=== PATIENT | female | born 1965 | race Hispanic/Latino ===

== ENCOUNTER 2021-07-16 06:00 | Day surgery (SDC) | payer BC ==
[2021-07-15 11:16] LABS: BASOPHILS % (AUTO) 0.4 % (0.0-5.0); EOSINOPHILS % (AUTO) 1.7 % (0.0-8.0); HEMATOCRIT 45.7 % (36-48); MEAN CORPUSCULAR HEMOGLOBIN 33.1 pg (27.0-33.0); MEAN CORPUSCULAR HGB CONC 32.4 g/dL (32.0-36.0); MEAN CORPUSCULAR VOLUME 102.2 fL (79-99); MONOCYTES % (AUTO) 6.2 % (3.0-13.0); NEUTROPHILS % (AUTO) 68.5 % (40.0-77.0); PLATELET COUNT (AUTO) 299 K/uL (130-400); RED BLOOD CELL COUNT(AUTO) 4.47 MIL/uL (4.00-5.50); RED CELL DISTRIBUTION WIDTH 12.9 % (11.0-15.5); WHITE BLOOD COUNT (AUTO) 8.1 K/uL (4.8-10.8)
[2021-07-15 11:21] LABS: APPEARANCE,URINE Clear (CLEAR); BILIRUBIN,URINE Negative (NEGATIVE); COLOR,URINE Yellow (YELLOW); GLUCOSE, URINE (UA) Negative (NEGATIVE); KETONES,URINE Negative (NEGATIVE); LEUKOCYTE ESTERASE ,URINE Moderate (NEGATIVE); NITRATE,URINE Negative (NEGATIVE); OCCULT BLOOD,URINE Negative (NEGATIVE); PH,URINE 6.5 (5.0-8.0); PROTEIN,URINE Negative (NEGATIVE); UROBILINOGEN,URINE 0.2 mg/dL (0.2-1.0)
[2021-07-15 11:30] LABS: INR 0.98 (0.85-1.15); PROTHROMBIN TIME 10.7 SEC (9.6-11.6)
[2021-07-15 11:32] LABS: PARTIAL THROMBOPLASTIN TIME 25.9 SEC (26.3-35.5)
[2021-07-15 11:34] LABS: BACTERIA,URINE Rare /HPF (None Seen); RBC,URINE 0-1 /HPF (0-1); SQUAMOUS EPITHELIAL CELL,UR Few /HPF (0-2); WBC,URINE 0-1 /HPF (0-1)
[2021-07-15 11:43] LABS: CREATININE 0.8 mg/dL (0.5-1.5); POTASSIUM 3.8 mmol/L (3.5-5.1)
[2021-07-15 13:27] VITALS: BP 133/86
[~2021-07-16] VITALS: Ht 172.7 cm; Wt 74.3 kg
[2021-07-16] VITALS (18 sets, daily range): BP systolic 113–147; BP diastolic 72–100
[~2021-07-16 06:00] MED LIST: AMOX-427 PO; LEVO88CA4 PO; LOSA100T58 PO; MULT-1203 PO
[2021-07-16] MEDS ORDERED: LACTATED RINGERS 1000ML 1,000 ML IV ONE (06:49)
[2021-07-16] MEDS ORDERED: SUCCINYLCHOLINE 200MG/10ML SYR ONE (07:02)
[2021-07-16] MEDS ORDERED: SUCCINYLCHOLINE CHLORIDE 20 MG/ML 10 ML VIAL ONE (07:02)
[2021-07-16] MEDS ORDERED: LIDOCAINE PF 100MG/5ML (2%) SYRINGE 5ML ONE (07:02)
[2021-07-16] MEDS ORDERED: GLYCOPYRROLATE 1 MG/5 ML SYRINGE ONE (07:03)
[2021-07-16] MEDS ORDERED: ONDANSETRON 4MG INJ ONE ×2 (07:03→09:36)
[2021-07-16] MEDS ORDERED: DEXAMETHASONE SOD PHOSPHATE 10MG/ML 1ML VIAL ONE (07:03)
[2021-07-16] MEDS ORDERED: NEOSTIGMINE 5MG/5ML SYR IV ONE (07:03)
[2021-07-16] MEDS ORDERED: PROPOFOL 10 MG/ML 20ML VIAL IV ONE (07:03)
[2021-07-16] MEDS ORDERED: FENTANYL CITRATE PF 50 MCG/1 ML 2ML VIAL ONE ×2 (07:04→08:05)
[2021-07-16] MEDS ORDERED: MIDAZOLAM HCL 1 MG/ML 2ML VIAL ONE (07:04)
[2021-07-16] MEDS ORDERED: ROCURONIUM 10MG/1ML SYR 10 MG/ML ML ONE (07:04)
[2021-07-16] MEDS ORDERED: VALA500T42 PO (07:23)
[2021-07-16] MEDS: CEFAZOLIN SODIUM 1 GM VIAL ONE ×2 (07:38→07:46)
[2021-07-16] MEDS ORDERED: EPHEDRINE SULFATE 50 MG/ML AMPULE ONE (08:14)
[2021-07-16] MEDS ORDERED: MEPERIDINE-PF 25 MG/ML SYG ONE ×2 (09:36→09:49)
[2021-07-16] MEDS ORDERED: KETOROLAC 30MG VIAL (30MG/ML) ONE (09:36)
== END 2021-07-16 11:45 | disposition home or self-care (01) ==
LOC: DAH 06:00
PROVIDERS: ATTEND Orthopaedic Surgery Sports Medicine
DX: M70.21 Olecranon bursitis, right elbow (principal); T84.59XA Infection and inflammatory reaction due to other internal joint prosthesis, initial encounter; I10 Essential (primary) hypertension; E78.00 Pure hypercholesterolemia, unspecified; Z88.6 Allergy status to analgesic agent; Z79.890 Hormone replacement therapy; Z98.890 Other specified postprocedural states; Z90.49 Acquired absence of other specified parts of digestive tract; Z90.89 Acquired absence of other organs; Z79.01 Long term (current) use of anticoagulants; Z79.899 Other long term (current) drug therapy; Y83.8 Other surgical procedures as the cause of abnormal reaction of the patient, or of later complication, without mention of misadventure at the time of the procedure
CPT/HCPCS: 20680; 24105; 36415; 73070; 80048; 81001; 85025; 85610; 85730; 86850; 86900; 86901; 87070; 87076; 87077; 87088; 87186; 87205; 87635; A4213; A4215; A4216; A4221; A4222; A4223 ×2; A4565; A4606; A4649 ×3; A4663; A6223; C9803; J0330 ×2; J0690; J1100; J1885; J2001; J2175 ×2; J2250; J2405 ×2; J2704; J2710; J3010 ×2; J3490 ×2; J7120

== ENCOUNTER → 2022-07-15 | Outpatient (CLI) | payer BC ==
[~2022-07-15] MED LIST changes: +VALA500T42 PO
== END | disposition home or self-care (01) ==
LOC: RAH 15:00
PROVIDERS: ATTEND Internal Medicine Critical Care Medicine
DX: Z12.31 Encounter for screening mammogram for malignant neoplasm of breast (principal); Z15.01 Genetic susceptibility to malignant neoplasm of breast
CPT/HCPCS: 77063; 77067

== ENCOUNTER → 2023-03-18 | Outpatient (CLI) | payer BC ==
[~2023-03-18] MED LIST changes: +GADOTERATE MEGLUMINE 10 MMOL/20 ML VIAL IV ONE; -LOSA100T58 PO; +LOSA100T59 PO
== END | disposition home or self-care (01) ==
LOC: RAH 07:31
PROVIDERS: ATTEND Internal Medicine Critical Care Medicine
DX: Z12.39 Encounter for other screening for malignant neoplasm of breast (principal); Z15.01 Genetic susceptibility to malignant neoplasm of breast
CPT/HCPCS: 77049; A9575

== ENCOUNTER → 2023-07-19 | Outpatient (CLI) | payer BC ==
[~2023-07-19] MED LIST changes: -GADOTERATE MEGLUMINE 10 MMOL/20 ML VIAL IV ONE
== END | disposition home or self-care (01) ==
LOC: RAH 15:20
PROVIDERS: ATTEND Surgery
DX: Z12.31 Encounter for screening mammogram for malignant neoplasm of breast (principal)
CPT/HCPCS: 77063; 77067

== ENCOUNTER → 2024-01-28 | Outpatient (CLI) | payer BC ==
[2024-01-28 14:57] LABS: BILIRUBIN,TOTAL 0.4 mg/dL (0.2-1.0); CREATININE 0.9 mg/dL (0.5-1.0); POTASSIUM 4.2 mmol/L (3.5-5.1); TOTAL PROTEIN, SERUM 7.1 g/dL (6.0-8.3)
== END | disposition home or self-care (01) ==
LOC: LAB 12:58
PROVIDERS: ATTEND Surgery
DX: Z12.39 Encounter for other screening for malignant neoplasm of breast (principal); Z15.01 Genetic susceptibility to malignant neoplasm of breast; Z15.09 Genetic susceptibility to other malignant neoplasm
CPT/HCPCS: 36415; 80053

== ENCOUNTER → 2024-02-01 | Outpatient (CLI) | payer BC ==
[~2024-02-01] MED LIST changes: +GADOTERATE MEGLUMINE 10 MMOL/20 ML VIAL IV ONE
--- NOTE | 2024-02-01 17:10 | HMCIMG ---
MRI BREAST [facility] HISTORY: BRCA positive COMPARISON: 03/18/2023 TECHNIQUE: MRI of the bilateral breasts was performed utilizing multiple pulse sequences in axial, coronal and sagittal planes. Patient was given 20 cc of Clariscan through intravenous route. Dynamic imaging technique was used. FINDINGS: Fatty fibroglandular tissue is seen of both breasts. There is no mass lesion or abnormal enhancement. No evidence of nipple retraction or skin thickening is seen. IMPRESSION: 1. No interval changes seen. No mass lesion or abnormal enhancement is seen.
== END | disposition home or self-care (01) ==
LOC: RAH 14:45
PROVIDERS: ATTEND Surgery
DX: R92.323 Mammographic fibroglandular density, bilateral breasts (principal); Z15.01 Genetic susceptibility to malignant neoplasm of breast
CPT/HCPCS: C8908; A9575; 77049

== ENCOUNTER 2024-11-25 15:48 | Emergency (ER) | payer BC ==
[~2024-11-25] VITALS: Ht 172.7 cm; Wt 88.5 kg
[~2024-11-25 15:48] MED LIST changes: -GADOTERATE MEGLUMINE 10 MMOL/20 ML VIAL IV ONE; -LEVO88CA4 PO; +LEVO88CA5 PO
--- NOTE | 2024-11-25 16:51 | ERN ---
ED Note History of Present Illness Stated Complaint: FALL Chief Complaint: Mechanical Fall Time Seen by MD: 16:01 Dictation: PATIENT IS HERE WITH HER WITH COMPLAINTS OF LUMBOSACRAL AND LOWER THORACIC PAIN MIDLINE WITH SCIATICA BOTH LOWER EXTREMITY STATUS POST A FALL APPROXIMATELY 45 MINUTES AGO. SHE STATES SHE WAS WALKING IN THE LOCAL STORE WITH THE SHE TRIPPED ON HER FOOT AND LANDED ON HER BUTT. SHE SAID SHE FELT NAUSEATED AFTER IT HAPPENED WITH THE PAIN. SHE STATES SHE HAS HAD CHRONIC SCIATICA AFTER AN INJURY RUNNING 10 YEARS AGO AND WAS TOLD NOT TO RUN ANYMORE. SHE DENIES ANY CHANGE IN BOWEL OR BLADDER FUNCTION HAS NOT TAKEN ANYTHING PRIOR TO ARRIVAL FOR PAIN SINCE THE FALL. Allergies: Coded Allergies: codeine (Unverified Allergy, Unknown, 07/15/21) Home Meds Active Scripts Cyclobenzaprine HCl (Cyclobenzaprine HCl) 10 Mg Tablet, 1 TAB PO TID for muscle spasms for 10 Days, #30 TAB 0 Refills Prov:NOEMI LOONEY NP 11/25/24 Ibuprofen (Ibuprofen 800 mg Tab) 800 Mg Tab, 800 MG PO Q8H PRN for fever or pain, #30 TAB 0 Refills Prov:NOEMI LOONEY NP 11/25/24 Omeprazole (Omeprazole) 40 Mg Capsule.dr, 1 CAP PO DAILY for 30 Days, #30 CAP 0 Refills Prov:NOEMI LOONEY NP 11/25/24 Prednisone (Prednisone) 20 Mg Tablet, 1 TAB PO AD for 6 Days, #14 TAB 0 Refills TAKE 1 TAB BY MOUTH THREE TIMES PER DAY X3 DAYS, THEN TAKE 1 TAB BY MOUTH TWICE A DAY X2 DAYS, THEN TAKE 1 TAB BY MOUTH ONCE A DAY X1 DAY. Prov:NOEMI LOONEY NP 11/25/24 Reported Medications Valacyclovir HCl (Valacyclovir) 500 Mg Tablet, 500 MG PO DAILY, TAB 07/16/21 Amoxicillin/Potassium Clav (Augmentin Xr 1,000-62.5 Tab) 1 Each Tab.er.12h, 1 EACH PO BID, TAB 07/15/21 Losartan Potassium (Losartan Potassium) 100 Mg Tablet, 100 MG PO AM, TAB 07/15/21 Multivitamin (Multi Vitamin Daily) 1 Each Tablet, 1 EACH PO AM, TAB 07/15/21 Levothyroxine Sodium (Levothyroxine) 88 Mcg Capsule, 88 MCG PO AM, CAP 07/15/21 Past Medical History Past Medical History: Hypertension Surgical History: Cholecystectomy History: Not Applicable RN Note Reviewed/Agreed w/PFSH: Yes Review of System Dictation CONSTITUTIONAL: NEGATIVE EXCEPT FOR HPI HEAD/FACE: NEGATIVE EXCEPT FOR HPI EENT: NEGATIVE EXCEPT FOR HPI RESPIRATORY: NEGATIVE EXCEPT FOR HPI GASTROINTESTINAL/ABDOMINAL: NEGATIVE EXCEPT FOR HPI GENITOURINARY: NEGATIVE EXCEPT FOR HPI MUSCULOSKELETAL: NEGATIVE EXCEPT FOR HPI LOWER THORACIC/LUMBOSACRAL PAIN CHRONIC SCIATICA INTEGUMENTARY: NEGATIVE EXCEPT FOR HPI NEUROLOGICAL/PSYCH: NEGATIVE EXCEPT FOR HPI HEMATOLOGIC/LYMPHATIC: NEGATIVE EXCEPT FOR HPI ALL SYSTEMS NEGATIVE, EXCEPT NOTED ABOVE. 13 POINT REVIEW OF SYSTEMS ASSESSED AND ALL NEGATIVE EXCEPT FOR ABOVE. Initial Vital Sign VS Vital Signs Date Time Temp Pulse Resp B/P (MAP) Pulse Ox O2 Delivery O2 Flow Rate FiO2 11/25/24 15:51 97.9 77 16 104/80 97 Room Air 0 11/25/24 15:57 21 Physical Exam Dictation VITAL SIGNS REVIEWED GENERAL APPEARANCE: ALERT, ORIENTED X 3, SEVERE ACUTE DISTRESS, WELL DEVELOPED, NOURISHED. HEAD AND FACE: NON-TRAUMATIC. EYES: PERRL, PINK CONJUNCTIVAS, EYELID NO TRAUMA, ANTERIOR CHAMBER WITH ARCUS SENILIS. EARS: PINNAS INTACT AND NO SIGNS OF TRAUMA OR ERYTHEMA EAR CANALS CLEAR AND NO DISCHARGE TM NO ERYTHEMA NOSE: NO DISCHARGE, NO BLEEDING. OROPHARYNX: MOUTH NORMAL, TONGUE PINK, PHARYNX CLEAR,NO ERYTHEMA, TONSILS NO EXUDATES, NO ABSCESSES NOTED, MUCOUS MEMBRANE MOIST NECK: SUPPLE, NON-TENDER, NO THYROMEGALY, NO MASSES, NO JVD, NO BRUITS BREAST:DEFERRED CHEST:NO TENDERNESS, NO CREPITUS, NO PARADOXICAL MOVEMENT, NO RETRACTIONS LUNGS:CLEAR, WELL-VENTILATED, SYMMETRIC, NO RALES, NO WHEEZING, NO RHONCHI, NO STRIDOR, GOOD BREATH SOUNDS BILATERALLY HEART: REGULAR RATE, REGULAR RHYTHM, NO MURMUR, NO GALLOPS VASCULAR: NO PERIPHERAL EDEMA, ABDOMEN: SOFT, POSITIVE BOWEL SOUNDS, NONDISTENDED, NO GUARDING, NONTENDER, NO REBOUND, NO MASSES NO HEPATOMEGALY, NO SPLENOMEGALY, NO RICKS'S SIGN, NO HERNIAS. RECTAL: DEFERRED GENITAL: DEFERRED NEUROLOGICAL: NORMAL SPEECH, MOTOR FUNCTION INTACT, SENSORY FUNCTION INTACT MUSCULOSKELETAL: NECK NONTENDER, FULL RANGE OF MOTION, DIFFUSE AND MIDLINE DISTAL THORACIC/LUMBAR AND SACRAL TENDERNESS NO STEP-OFFS. POSITIVE STRAIGHT LEG RAISE BILATERALLY 10 BILATERAL EXTREMITIES: NONTENDER, FULL RANGE OF MOTION SKIN: COLOR PINK, DRY, NO TURGOR, NO RASH, NO LACERATIONS, NO ABRASIONS, NO CONTUSIONS. LYMPHATIC: DEFERRED Results (Laboratory/Radiology) Laboratory/Radiology 0/THORACIC/LUMBAR/SACRAL X-RAYS DEMONSTRATE DEGENERATIVE CHANGES WITH OSTEOPENIA NO FRACTURES. Labs Reviewed?: Yes ED Course ED Course Orders Procedure Category Date Status Time Lumbar Spine 2-3vws RAD 11/25/24 Resulted 16:46 Sacrum/Coccyx 2+Vws RAD 11/25/24 Resulted 16:46 Thoracic Spine 2vws RAD 11/25/24 Resulted 16:46 Cyclobenzaprine Hcl PHA 11/25/24 Complete (Cyclobenzaprine Hcl 17:00 Ketorolac 60mg/2ml PHA 11/25/24 Complete (Toradol 60mg/2ml) 17:00 Dexamethasone 4mg/Ml PHA 11/25/24 Complete 1ml Vial (Dexametha 17:00 Current Medications Medications (Trade) Dose Ordered Sig/Matt Route PRN Reason Start Time Stop Time Status Last Admin Dose Admin Cyclobenzaprine HCl (Cyclobenzaprine HCl) 10 mg ONCE ONCE PO 11/25/24 17:00 11/25/24 17:01 DC 11/25/24 17:42 Dexamethasone Sodium Phosphate (dexaMETHasone 4MG/ML 1ML VIAL) 8 mg ONCE ONCE IM 11/25/24 17:00 11/25/24 17:01 DC 11/25/24 17:40 Ketorolac Tromethamine (toRADol 60MG/ 2ML) 60 mg ONCE ONCE IM 11/25/24 17:00 11/25/24 17:01 DC 11/25/24 17:42 Vital Signs Date Time Temp Pulse Resp B/P (MAP) Pulse Ox O2 Delivery O2 Flow Rate FiO2 11/25/24 15:57 97.9 77 16 104/80 97 Room Air* 0 21 11/25/24 15:51 97.9 77 16 104/80 97 Room Air 0 1810/SPOKE WITH PATIENT REGARDING CLINICAL FINDINGS. SHE WILL BE DISCHARGED HOME WITH CYCLOBENZAPRINE/PREDNISONE/IBUPROFEN AND OMEPRAZOLE SHE WILL BE REFERRED TO FOR FURTHER CARE OF HER CHRONIC BACK PAIN OR SEE HER PRIMARY CARE DOCTOR. Medical Decision Making MDM MEDICAL DISCHARGE MAKING BASED ON THORACIC LUMBAR AND SACRAL FILMS. FOR FALL PATIENT TREATED EMPIRICALLY FOR PAIN AND CHRONIC SCIATICA X-RAYS SHOW NO FRACTURES, DEGENERATIVE CHANGES WITH OSTEOPENIA ONLY PATIENT DISCHARGED HOME WITH PAIN MANAGEMENT AND TOLD TO FOLLOW UP WITH NEUROSURGEON OR HER PRIMARY CARE DOCTOR NEEDED SHE MAY REQUIRE AN MRI IN THE FUTURE FOR HER SCIATICA DX & DISP Disposition: Discharge Departure Impression: Primary Impression: Back contusion Additional Impressions: Osteopenia of spine, Chronic sciatica, Fall, DJD (degenerative joint disease), thoracic, DJD (degenerative joint disease), lumbosacral Condition: Stable Scripts Cyclobenzaprine HCl (Cyclobenzaprine HCl) 10 Mg Tablet 1 TAB PO TID for muscle spasms for 10 Days, #30 TAB 0 Refills Prov: NOEMI LOONEY NP 11/25/24 Ibuprofen (Ibuprofen 800 mg Tab) 800 Mg Tab 800 MG PO Q8H PRN for fever or pain, #30 TAB 0 Refills Prov: NOEMI LOONEY NP 11/25/24 Omeprazole (Omeprazole) 40 Mg Capsule.dr 1 CAP PO DAILY for 30 Days, #30 CAP 0 Refills Prov: NOEMI LOONEY NP 11/25/24 Prednisone (Prednisone) 20 Mg Tablet 1 TAB PO AD for 6 Days, #14 TAB 0 Refills TAKE 1 TAB BY MOUTH THREE TIMES PER DAY X3 DAYS, THEN TAKE 1 TAB BY MOUTH TWICE A DAY X2 DAYS, THEN TAKE 1 TAB BY MOUTH ONCE A DAY X1 DAY. Prov: NOEMI LOONEY NP 11/25/24 Additional Instructions: FOLLOW-UP WITH PRIMARY CARE PROVIDER IN 1 TO 2 DAYS. TAKE MEDICATIONS DIRECTED HERE IN THE EMERGENCY ROOM. OKAY TO CONTINUE HOME MEDICATIONS UNLESS OTHERWISE DISCUSSED DURING YOUR VISIT IN THE EMERGENCY ROOM TODAY. RETURN TO YOUR NEAREST EMERGENCY ROOM IF SYMPTOMS WORSEN OR IF THERE IS NO IMPROVEMENT. CALL 911 IF YOU NEED IMMEDIATE ASSISTANCE. TAKE TYLENOL OR MOTRIN [id number] NEEDED AND IF NO CONTRAINDICATIONS ARE PRESENT. INCREASE ORAL HYDRATION. A WOUND CULTURE OR URINE CULTURE WAS ORDERED HERE IN THE EMERG ENCY ROOM DEPARTMENT PLEASE FOLLOW-UP WITH PRIMARY CARE PROVIDER AND ADVISE THEM TO GET REPEAT PORTS FROM OUR FACILITY. IF YOU HAD ANY ANNE MARIE WRAP/SPLINTS THAT WERE APPLIED HERE, PLEASE DO NOT REMOVE THEM UNTIL YOU SEE YOUR PRIMARY CARE OR SPECIALTY. TAKE IBUPROFEN AND FLEXERIL EVERY 8 HOURS WITH FOOD FOR THE NEXT TWO DAYS. TAKE PREDNISONE DIRECTED WITH FOOD UNTIL GONE. SUGGEST WARM COMPRESSES TO PAIN THREE TO 4 TIMES A DAY. NO LIFTING GREATER THAN 10 LB AND FOLLOW UP WITH YOUR PRIMARY CARE DOCTOR OR GIVE THE NEUROSURGEON TO CALL FOR AN APPOINTMENT. Referrals: YODIT JUNG MD (PCP) AYSE KAY MD Time of Disposition: 18:15 I have reviewed the case, and I agree with, Diagnosis and Plan NOEMI LOONEY NP Nov 25, 2024 16:51
[2024-11-25] MEDS: CYCLOBENZAPRINE HCL 10 MG TABLET PO ONE (17:42)
--- NOTE | 2024-11-25 17:52 | HMCIMG ---
EXAM: CR Lumbar Spine, 3 View. CLINICAL HISTORY: MIDLINE PAIN STATUS POST FALL. HISTORY OF CHRONIC SCIATICA COMPARISON: None provided. FINDINGS: BONES: Generalized osteopenia No fracture ALIGNMENT: Alignment is within normal limits. No significant scoliosis. DISCS / DEGENERATIVE CHANGES: Mild diffuse degenerative changes SOFT TISSUES: The soft tissues are unremarkable. IMPRESSION: 1. Mild diffuse degenerative changes 2. Generalized osteopenia 3. No fracture /[place]
--- NOTE | 2024-11-25 17:52 | HMCIMG ---
EXAM: CR Sacrum and Coccyx, 3 View. CLINICAL HISTORY: MIDLINE PAIN STATUS POST FALL. HISTORY OF CHRONIC SCIATICA COMPARISON: None provided. FINDINGS: BONES: Generalized osteopenia No fracture SOFT TISSUES: The soft tissues are unremarkable. MISCELLANEOUS: Degenerative changes IMPRESSION: 1. Generalized osteopenia 2. Degenerative changes 3. No fracture /[place]
--- NOTE | 2024-11-25 18:02 | HMCIMG ---
EXAM: CR Thoracic Spine, 2 View. CLINICAL HISTORY: DISTAL THORACIC PAIN MIDLINE STATUS POST FALL ON BUTT. HISTORY OF CHRONIC COMPARISON: None provided. FINDINGS: BONES: No fracture evident Generalized osteopenia DISCS / DEGENERATIVE CHANGES: Mild diffuse degenerative changes SOFT TISSUES: The paraspinal soft tissue lines are unremarkable. The visualized lungs are clear. MISCELLANEOUS: Visualization of the upper thoracic spine is limited on the lateral view by overlying structures. IMPRESSION: 1. Mild diffuse degenerative changes 2. No fracture evident 3. Generalized osteopenia /[place]
[2024-11-25] MEDS ORDERED: CYCL-309 PO (18:16)
[2024-11-25] MEDS ORDERED: PRED20TA3 PO (18:16)
[2024-11-25] MEDS ORDERED: OMEP40CA21 PO (18:16)
[2024-11-25] MEDS ORDERED: IBUP-2077 PO (18:16)
[2024-11-25 19:20] VITALS: BP 131/78; PULSE 69; RESP 18; TEMP 97.7; O2SAT 96
== END 2024-11-25 19:30 | disposition home or self-care (01) ==
LOC: EDH 15:48
DX: S20.229A Contusion of unspecified back wall of thorax, initial encounter (principal); M85.88 Other specified disorders of bone density and structure, other site; M54.32 Sciatica, left side; M54.31 Sciatica, right side; M47.816 Spondylosis without myelopathy or radiculopathy, lumbar region; M47.814 Spondylosis without myelopathy or radiculopathy, thoracic region; I10 Essential (primary) hypertension; Z79.624 Long term (current) use of inhibitors of nucleotide synthesis; Z79.899 Other long term (current) drug therapy; Z88.5 Allergy status to narcotic agent; Z90.49 Acquired absence of other specified parts of digestive tract; W18.39XA Other fall on same level, initial encounter; Y93.89 Activity, other specified; Y92.89 Other specified places as the place of occurrence of the external cause; Y99.8 Other external cause status
CPT/HCPCS: 99284; 72100; 72220; 72070; 96372 ×2; J1885; J1100